=== PATIENT | male | born 1945 | race Caucasian/White ===

== ENCOUNTER → 2023-05-29 02:49 | Outpatient (CLI) | payer MEDICARE, BC, SELFPAY ==
--- NOTE | 2023-05-29 08:30 | DI.CT_ITS ---
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 Evaluate for sinusitis. TECHNIQUE: Imaging Protocol: Axial computed tomography images with coronal and sagittal reformatted images were created and reviewed. COMPARISON: No exams were available for comparison FINDINGS: AXIAL IMAGES: Frontal sinuses: Normally aerated. Ethmoid air cells: There is mucosal thickening in several ethmoid air cells. Maxillary sinuses: Mild to moderate mucosal thickening is seen in the maxillary sinuses bilaterally. There are air-fluid level seen in both maxillary sinuses, right greater than left. Sphenoid sinus: There is mild mucosal thickening in the sphenoid sinuses bilaterally. Ostiomeatal complexes: There is obstruction of the left ostiomeatal complex. Osseous nasal septum: Midline. Visualized regional soft tissues: There is artifact from the patient's dental amalgam. Orbits: Unremarkable. Bones: Unremarkable. Mastoid Air Cells: Normally aerated. IMPRESSION: 1. Air-fluid level seen in the maxillary sinuses suggestive of acute sinusitis. 2. Chronic pozo sinusitis. RADIATION DOSE DELIVERED: Total DLP Total DLP DATA REPOSITORY: All CT scans at this facility are submitted to the National Radiology Data Registry (NRDR) Dose Index Registry (DIR) with the [employer] ([employer]). RADIATION OPTIMIZATION: All CT scans at this facility use at least one of these dose optimization te chniques: automated exposure control; mA and/or kV adjustment per patient size (includes targeted exa ms where dose is matched to clinical indication); or iterative reconstruction.
== END ==
PROVIDERS: PCP Family Medicine; Visit Provider Otolaryngology
DX: J01.00 Acute maxillary sinusitis, unspecified (principal); J32.4 Chronic pansinusitis
CPT/HCPCS: 70486